=== PATIENT | female | born 1970 | race Caucasian/White ===

== ENCOUNTER 2021-09-18 12:08 | Emergency (ER) | payer BC, SELFPAY ==
[2021-09-18] VITALS (8 sets, daily range): BP systolic 133–187; BP diastolic 75–103; PULSE 74–98; RESP 14–20; TEMP 37; O2SAT 97–98; BMI 30.7
--- NOTE | ~2021-09-18 | CT_ITS ---
EXAMINATION: CT HEAD WITHOUT CONTRAST CLINICAL INFORMATION: Blurry vision, hypertension. COMPARISON: None TECHNIQUE: Contiguous axial imaging was performed from the skull base to vertex without intravenous administration of contrast. This CT examination was performed using dose optimization techniques as appropriate, variously including the following: *Automated exposure control *Adjustment of mA and/or kV according to patient size (this includes techniques or standardized protocols for targeted exams where dose is matched to indication/reason for exam; i.e. extremities or head) *Use of iterative reconstruction technique DLP: 1178 mGy-cm FINDINGS: There is no evidence of acute intracranial hemorrhage or territorial infarction. No abnormal mass effect or midline shift is seen. Simms to white matter differentiation is well preserved. No extra-axial fluid collections are identified. The ventricles are normal in size. There is no abnormal attenuation within the brain parenchyma. The osseous structures and soft tissues are normal. The mastoid air cells and visualized portions of the paranasal sinuses are well aerated. CT/CT head/brain wo con IMPRESSION: No acute intracranial process seen.
--- NOTE | ~2021-09-18 | CT_ITS ---
EXAMINATION: CT ABDOMEN AND PELVIS WITHOUT CONTRAST CLINICAL INFORMATION: Left lower quadrant abdominal pain COMPARISON: None TECHNIQUE: Multidetector volumetric imaging was performed from the superior aspect of the liver through the pubic symphysis. Sagittal and coronal reformatted images were obtained on the technologist's workstation. This CT examination was performed using dose optimization techniques as appropriate, variously including the following: *Automated exposure control *Adjustment of mA and/or kV according to patient size (this includes techniques or standardized protocols for targeted exams where dose is matched to indication/reason for exam; i.e. extremities or head) *Use of iterative reconstruction technique DLP: 1178 mGy-cm FINDINGS: LUNG BASES: The lung bases are clear. There is a calcified 6 mm nodule with adjacent parenchymal LIVER, GALLBLADDER, AND BILIARY TREE: The liver is normal in size, shape, and attenuation. No focal hepatic lesion or biliary ductal dilatation is present. The gallbladder is unremarkable with no evidence of radiopaque gallstones, gallbladder wall thickening, or obvious pericholecystic inflammatory changes. PANCREAS: Unremarkable. SPLEEN: Unremarkable. ADRENAL GLANDS: Unremarkable. KIDNEYS AND URETERS: The kidneys are normal in size, shape, and attenuation. No hydronephrosis, hydroureter, or calculi seen. No perinephric stranding. There is cyst exophytic 2.2 x 1.6 cm cyst midpole cortex left kidney. BLADDER: Unremarkable. GASTROINTESTINAL TRACT: There is scattered stool and gas seen throughout the colon without any significant distention. Small bowel loops are normal caliber. Appendix is not seen. ABDOMINAL WALL: No significant hernia is appreciated. LYMPH NODES: Normal. VASCULAR: Unremarkable. PELVIC VISCERA: The uterus is anteverted and appears unremarkable. No adnexal mass or free fluid seen. No abnormal pelvic or inguinal lymphadenopathy. OSSEOUS STRUCTURES: There are degenerative disc changes with vacuum disc phenomena L5-S1 disc level. CT/CT abdomen pelvis wo con IMPRESSION: No acute intra-abdominal process seen. No etiology found for left lower quadrant pain. Fleischner guidelines were followed.
--- NOTE | ~2021-09-18 | XR_ITS ---
EXAMINATION: XR CHEST CLINICAL INFORMATION: Chest pain COMPARISON: None TECHNIQUE: Frontal view of the chest was obtained. FINDINGS: Lungs are well-inflated. An old calcified granuloma is present in the left lower lobe. Trachea is midline in position. No interstitial disease, consolidation or mass. No pleural effusion or pneumothorax. Cardiac silhouette and pulmonary vessels are normal in size. The mediastinum and myra have normal contour. The visualized bones, and upper abdomen, are unremarkable. XR/XR chest 1V IMPRESSION: No acute cardiopulmonary abnormality.
--- NOTE | 2021-09-18 12:40 | ECG_ITS ---
Test Reason : HIGH BLOOD PRESSURE Blood Pressure : / mmHG Vent. Rate : 081 BPM Atrial Rate : 081 BPM P-R Int : 164 ms QRS Dur : 086 ms QT Int : 420 ms P-R-T Axes : 060 030 007 degrees QTc Int : 487 ms Normal sinus rhythm Prolonged QT Abnormal ECG No previous ECGs available Referred By: Thelma Hodge Electronically Signed By:SHANNA EMERY MD
--- NOTE | 2021-09-18 12:43 | ED_ITS ---
HPI - General Adult General Chief complaint: Recheck/Abnormal Lab/Rx Stated complaint: High blood pressure, Chest pain Time Seen by Provider: 09/18/21 12:31 Source: patient Mode of arrival: ambulatory History of Present Illness HPI narrative: 51-year-old female with past medical history of HTN on chlorothiazide 25 mg, presenting to the ED complaining of chest discomfort, generalized fatigue, intermittent lightheadedness, mild headache, mild blurry vision bilaterally, low back pain, and LLQ abdominal pain x5 days. Admits has been checking her BP at home due to increased anxiety/stressors, and has been elevated also with noted tachycardia. Denies SOB, vomiting, diarrhea, constipation, dysuria/hematuria Onset (ago): day(s) Related Data Previous Rx's Medication Instructions Recorded lisinopril 10 mg tablet 10 mg PO DAILY #30 tabs 09/18/21 Allergies Allergy/AdvReac Type Severity Reaction Status Date / Time No Known Allergies Allergy Verified 09/18/21 12:16 Review of Systems Review of Systems: Constitutional: No Fever, No Chills, + Fatigue, No Malaise ENT/Mouth: No Ear Pain, No Nasal Congestion, No Sinus Pain, No sore throat, No Rhinorrhea, No Swallowing Difficulty Eyes: No Eye Pain, No Swelling, No Redness, No Foreign Body, No Discharge, + Vision Changes Cardiovascular: + Chest Pain, No SOB, No Dyspnea on Exertion, No Orthopnea, No Edema, No Palpitations Respiratory: No Cough, No Sputum, No Wheezing, No Dyspnea Gastrointestinal: + Nausea, No Vomiting, No Diarrhea, No Constipation, + Abdominal pain,= Genitourinary: No irregular bleeding, No Dysuria, No Urinary Frequency, No Hematuria, No Urinary Incontinence/retention, No Flank Pain, No Urinary Flow Changes Musculoskeletal: No joint pain, No Myalgias, No Joint Swelling Skin: No Skin Lesions, No rash Neuro: + Weakness, No Numbness, No Paresthesias, No Loss of Consciousness, + lightheadedness, + Headache Yes all other systems are reviewed and are negative Constitutional: Constitutional: Reports as per [facility] Past Medical History Attestation statement: The following information was validated with the patient. Medical History (Updated 09/18/21 @ 19:57 by BRYON Guadalupe) Hypertension Social History Social History Patient Tobacco Use Status: Never used Tobacco Use of substances other than those prescribed or required for medical reasons: No Advance Directives: No Advance Directives Information Provided: No Physical Exam ED Vital Signs: Vital Signs - 24 hr 09/18/21 12:13 09/18/21 12:45 09/18/21 12:48 Temperature 98.6 F Pulse Rate 98 84 91 Respiratory Rate 16 16 Blood Pressure 185/103 H 187/94 H 180/98 H Pulse Oximetry 97 98 Oxygen Delivery Method Room Air Room Air 09/18/21 12:50 09/18/21 12:52 09/18/21 15:08 Temperature Pulse Rate 81 93 78 Respiratory Rate 20 Blood Pressure 176/91 H 164/92 H 143/86 H Pulse Oximetry Oxygen Delivery Method 09/18/21 17:40 09/18/21 19:27 Temperature Pulse Rate 84 74 Respiratory Rate 20 14 Blood Pressure 139/79 133/75 Pulse Oximetry 98 Oxygen Delivery Method BMI result Body Mass Index 30.7 Const General: cooperative, healthy appearing, no acute distress, alert and awake Orientation/consciousness: patient oriented x3 Limitations: no limitations HENMT Head: Yes normal to inspection and Yes atraumatic Ears: hearing grossly normal bilaterally General nose exam: Normal external nose present Face and sinus: Yes normal facial exam Throat: Yes posterior oropharynx normal, Yes tonsils normal and Yes uvula midline Eyes General: appearance normal, both eyes and all related structures Pupils: Equal, round and reactive pupils present EOM: EOMs intact bilaterally Neck Neck: Yes normal visual inspection and Yes no meningeal signs Resp Effort & Inspection: normal respiratory effort and no respiratory distress Auscultation: clear to auscultation bilaterally, no crackles, no rales, no rhonchi and no wheezes Cardio Rate: regular rate Heart sounds: S1 normal heart sound present and S2 normal heart sound present GI Inspection: Yes normal to inspection Palpation (GI): Soft to palpation, Tenderness to palpation present (GI) in the LLQ; with no rebound tenderness, no guarding and not rigid General: Yes no CVA tenderness Back/Spine/Pelvis Back: no CVA tenderness Skin Rashes: no rashes Wounds: no wounds Neuro General: patient oriented x3, tone normal and no meningeal signs Cranial nerves: Yes Equal, round and reactive pupils present Gait exam (Neuro): Normal gait present Motor exam (neuro): 5/5 motor strength present throughout, Pronator motor function not present and no tremor noted Coordination: [id number] test normal Romberg Test: Negative Extrem General: Yes normal to inspection, Yes no pedal edema and Yes no calf tenderness Course Course Course Narrative: -1342--no leukocytosis. H&H stable. Hypokalemic to 2.8 > 60 mEq p.o. and 10 mEq IV repletion ordered >> EKG does show prolonged QT to 487 > could be 2/2 thiazide. Magnesium WNL. will continue to monitor -troponin negative. UA negative. COVID-19 negative XR chest 1V IMPRESSION: No acute cardiopulmonary abnormality. CT head/brain wo con IMPRESSION: No acute intracranial process seen. CT abdomen pelvis wo con IMPRESSION: No acute intra-abdominal process seen. No etiology found for left lower quadrant pain.? ? Fleischner guidelines were followed -repeat potassium after repletion improved to 4.3. Repeat EKG with continued prolonged QTC now to 500 > no prior EKGs to compare prior to today. Case was discussed with Dr. Gauthier who recommended 2 g of IV magnesium and repeat EKG. -1950--repeat EKG after IV magnesium 493, suspect this could be patients chronic, otherwise well-appearing on exam. Once again discussed with Dr. Gauthier who feels patient is safe for discharge home. Results discussed with patient and , recommended magnesium and potassium supplements at home as well as close PCP/cardiology follow-up. Discontinued patient's hydrochlorothiazide and will initiate lisinopril. They verbalized understanding and feels safe for discharge home at this time Medical Decision Making MDM Narrative Medical decision making narrative: 51-year-old female with past medical history of HTN on chlorothiazide 25 mg, presenting to the ED complaining of chest discomfort, generalized fatigue, intermittent lightheadedness, mild headache, mild blurry vision bilaterally, low back pain, and LLQ abdominal pain x5 days. On exam hypertensive, NAD, nontoxic appearing, no midline spinous tenderness, no focal neuro deficits, abdomen soft with LQ tenderness, no rebound or guarding. Concern for hypertensive urgency/emergency vs ACS vs viral illness vs diverticulitis. Symptoms atypical for PE. Low suspicion for appendicitis, renal stone, CHF, pneumonia Plan: EKG, labs, UA, head CT, CT abdomen/pelvis, IVF, orthostatics, re-evaluate Medical Records Medical records reviewed: Yes I reviewed the patient's medical records. Lab Data Lab results reviewed: Yes I reviewed the patient's lab results. Result diagrams: 09/18/21 13:07 09/18/21 15:41 Labs: Lab Results 09/18/21 09/18/21 09/18/21 Range/Units 13:02 13:07 13:07 WBC 7.3 (4.8-10.8) X10*3/uL RBC 4.70 (4.20-5.50) X10*6/uL Hgb 14.4 (12.0-16.0) g/dl Hct 41.5 (37.0-47.0) % MCV 88.3 (80.0-98.0) fL MCH 30.6 (27.0-33.0) pg MCHC 34.7 (31.0-35.0) g/dl RDW 12.1 (11.0-16.0) % Plt Count 307 (160-400) X10*3/uL MPV 10.5 (9.4-12.3) fL Immature Gran % (Auto) 0.1 (0.0-0.4) % Neut % (Auto) 57.4 (45-73) % Lymph % (Auto) 23.1 (20-40) % [place] % (Auto) 8.8 (2-11) % Eos % (Auto) 10.3 H (0-4) % Baso % (Auto) 0.3 (0-2) % Lymph # (Auto) 1.7 (1.2-4.9) X10*3/uL [place] # (Auto) 0.6 (0.1-1.2) X10*3/uL Eos # (Auto) 0.8 H (0.0-0.4) X10*3/uL Baso # (Auto) 0.0 (0.0-0.2) X10*3/uL Abs Immat Gran (auto) 0.01 (0.00-0.03) X10*3/uL Absolute Neuts (auto) 4.2 (2.0-8.3) x10*3/uL Absolute Nucleated RBC 0.000 (0.0-0.012) X10*3/uL Nucleated RBC % (auto) 0.0 (0.0-0.2) /100WBC Sodium 139 (135-145) mmol/L Potassium 2.8 L (3.3-5.1) mmol/L Chloride 95 L (96-108) mmol/L Carbon Dioxide 29 (22-29) mmol/L Anion Gap 18 (12-20) BUN 13 (9-16) mg/dL Creatinine 0.75 (0.5-1.4) mg/dL Estim Creat Clear Calc 75.7 Estimated GFR > 60 Random Glucose 90 (60-115) mg/dL Calcium 10.4 H (8.4-10.2) mg/dL Magnesium 1.8 (1.6-2.6) mg/dL Total Bilirubin 0.6 (0.0-1.0) mg/dL Direct Bilirubin 0.2 (0.0-0.5) mg/dL AST 16 (5-31) U/L ALT 20 (0-31) U/L Alkaline Phosphatase 28 L (39-117) U/L Troponin I High Sens (<3.5-17.0) ng/L Total Protein 8.4 H (6.5-8.0) g/dL Albumin 5.0 (3.5-5.0) g/dL Lipase 16 (8-78) U/L Urine Color Urine Appearance Urine pH (5.0-8.0) Ur Specific [place] (1.005-1.025) Urine Protein (NEG-TRACE) MG/DL Urine Glucose (UA) (NEG) MG/DL Urine Ketones (NEG) MG/DL Urine Blood (NEG) Urine Nitrite (NEG) Ur Leukocyte Esterase (NEG) COVID-19 (ISABELLE) Negative (Negative) COVID-19 Clin Com See Note 09/18/21 09/18/21 09/18/21 Range/Units 13:07 13:11 15:41 WBC (4.8-10.8) X10*3/uL RBC (4.20-5.50) X10*6/uL Hgb (12.0-16.0) g/dl Hct (37.0-47.0) % MCV (80.0-98.0) fL MCH (27.0-33.0) pg MCHC (31.0-35.0) g/dl RDW (11.0-16.0) % Plt Count (160-400) X10*3/uL MPV (9.4-12.3) fL Immature Gran % (Auto) (0.0-0.4) % Neut % (Auto) (45-73) % Lymph % (Auto) (20-40) % [place] % (Auto) (2-11) % Eos % (Auto) (0-4) % Baso % (Auto) (0-2) % Lymph # (Auto) (1.2-4.9) X10*3/uL [place] # (Auto) (0.1-1.2) X10*3/uL Eos # (Auto) (0.0-0.4) X10*3/uL Baso # (Auto) (0.0-0.2) X10*3/uL Abs Immat Gran (auto) (0.00-0.03) X10*3/uL Absolute Neuts (auto) (2.0-8.3) x10*3/uL Absolute Nucleated RBC (0.0-0.012) X10*3/uL Nucleated RBC % (auto) (0.0-0.2) /100WBC Sodium 139 (135-145) mmol/L Potassium 4.3 D (3.3-5.1) mmol/L Chloride 102 (96-108) mmol/L Carbon Dioxide 25 (22-29) mmol/L Anion Gap 16 (12-20) BUN 10 (9-16) mg/dL Creatinine 0.62 (0.5-1.4) mg/dL Estim Creat Clear Calc 91.6 Estimated GFR > 60 Random Glucose 78 (60-115) mg/dL Calcium 9.2 D (8.4-10.2) mg/dL Magnesium (1.6-2.6) mg/dL Total Bilirubin (0.0-1.0) mg/dL Direct Bilirubin (0.0-0.5) mg/dL AST (5-31) U/L ALT (0-31) U/L Alkaline Phosphatase (39-117) U/L Troponin I High Sens < 3.5 (<3.5-17.0) ng/L Total Protein (6.5-8.0) g/dL Albumin (3.5-5.0) g/dL Lipase (8-78) U/L Urine Color STRAW Urine Appearance HAZY Urine pH 6.0 (5.0-8.0) Ur Specific [place] <= 1.005 (1.005-1.025) Urine Protein NEG (NEG-TRACE) MG/DL Urine Glucose (UA) NEG (NEG) MG/DL Urine Ketones NEG (NEG) MG/DL Urine Blood NEG (NEG) Urine Nitrite NEG (NEG) Ur Leukocyte Esterase NEG (NEG) COVID-19 (ISABELLE) (Negative) COVID-19 Clin Com ECG Data Attestation: I personally reviewed and interpreted this ECG as follows: Interpretation: EKG is normal sinus rhythm at a rate of 81. IN interval 164. QTC 487, prolonged QT. No STEMI Discharge Plan Discharge Clinical Impression: Acute hypokalemia, Hypertension Patient Disposition: Home, Self-Care Instructions: Hypokalemia (ED), Chronic Hypertension (ED) Additional Instructions: Your potassium was very low today in the emergency department, we repleted it, however he did have EKG changes with a prolonged QT, this can be dangerous and related to your electrolyte abnormalities, this could also be related to your antihypertensive medication. We also repleted your magnesium. It is important for you to have close follow-up with her primary care doctor as well as Cardiology Stop taking your chlorothiazide and start taking lisinopril 10 mg daily. If her symptoms persist, worsen, become more constant, chest pain, shortness of breath, lightheadedness return to the ED immediately Prescriptions: New lisinopril 10 mg tablet 10 mg PO DAILY Qty: 30 0RF Referrals: Marli Hunter NP [Primary Care Provider] - 1 day Denis Felix MD [Physician] - 3 days
[2021-09-18 13:10] LABS: MANUAL DIFF FLAG NO
[2021-09-18] MEDS: 0.9 % Sodium Chloride 1,000 ML 999 ML IV (13:13)
[2021-09-18] MEDS: ondansetron HCL 4 MG/2 ML VIAL IVPUSH (13:13)
[2021-09-18 13:15] LABS: Basophils Percent Auto 0.3 % (0-2); Eosinophils Absolute Auto 0.8 X10*3/uL (0.0-0.4); Eosinophils Percent Auto 10.3 % (0-4); Hematocrit 41.5 % (37.0-47.0); Hemoglobin 14.4 g/dl (12.0-16.0); Imm Gran Abs Auto 0.01 X10*3/uL (0.00-0.03); Imm Gran Pct Auto 0.1 % (0.0-0.4); Lymphocytes Absolute Auto 1.7 X10*3/uL (1.2-4.9); Lymphocytes Percent Auto 23.1 % (20-40); Mean Corpuscular HGB Conc 34.7 g/dl (31.0-35.0); Mean Corpuscular Hemoglobin 30.6 pg (27.0-33.0); Mean Corpuscular Volume 88.3 fL (80.0-98.0); Mean Platelet Volume 10.5 fL (9.4-12.3); Monocytes Absolute Auto 0.6 X10*3/uL (0.1-1.2); Monocytes Percent Auto 8.8 % (2-11); Neutrophils Absolute Auto 4.2 x10*3/uL (2.0-8.3); Neutrophils Percent Auto 57.4 % (45-73); Platelet Count 307 X10*3/uL (160-400); Red Cell Distribution Width 12.1 % (11.0-16.0); White Blood Count 7.3 X10*3/uL (4.8-10.8)
[2021-09-18 13:19] LABS: Appearance Urine HAZY; Color Urine STRAW; Glucose Urine UA NEG (NEG); Leukocyte Esterase Urine NEG (NEG); Nitrite Urine NEG (NEG); Specific Gravity - Urine <= 1.005 (1.005-1.025); Urine Blood NEG (NEG); Urine Ketones NEG (NEG); Urine Protein NEG (NEG-TRACE)
[2021-09-18 13:29] LABS: COVID-19 Test Negative (Negative); IDNOW Serial# 16C4AD1C
[2021-09-18 13:31] LABS: Alanine Aminotransferase 20 U/L (0-31); Alkaline Phosphatase 28 U/L (39-117); Anion Gap 18 (12-20); Aspartate Amino Transferase 16 U/L (5-31); Bilirubin Direct 0.2 mg/dL (0.0-0.5); Bilirubin Total 0.6 mg/dL (0.0-1.0); Blood Urea Nitrogen 13 mg/dL (9-16); Calcium 10.4 mg/dL (8.4-10.2); Carbon Dioxide 29 mmol/L (22-29); Chloride 95 mmol/L (96-108); Creatinine Clr Calc Pharmacy 75.7; Estimated Glomerular Filt Rate > 60; Glucose Random 90 mg/dL (60-115); Lipase 16 U/L (8-78); Magnesium 1.8 mg/dL (1.6-2.6); Potassium 2.8 mmol/L (3.3-5.1); Sodium 139 mmol/L (135-145); Total Protein 8.4 g/dL (6.5-8.0)
[2021-09-18 13:34] LABS: Troponin-I High Sensitivity < 3.5 ng/L (<3.5-17.0)
[2021-09-18] MEDS: Potassium Chloride Packet 20 MEQ PACKET 60 MEQ PO (14:02)
[2021-09-18] MEDS: Potassium Chloride/H20 10 MEQ/100 ML PIGGYBACK 100 MEQ IV (14:03)
[2021-09-18 16:03] LABS: Blood Urea Nitrogen 10 mg/dL (9-16); Creatinine Clr Calc Pharmacy 91.6; Estimated Glomerular Filt Rate > 60; Glucose Random 78 mg/dL (60-115)
[2021-09-18 16:13] LABS: Anion Gap 16 (12-20); Calcium 9.2 mg/dL (8.4-10.2); Carbon Dioxide 25 mmol/L (22-29); Chloride 102 mmol/L (96-108); Potassium 4.3 mmol/L (3.3-5.1); Sodium 139 mmol/L (135-145)
--- NOTE | 2021-09-18 16:34 | ECG_ITS ---
Test Reason : low potassium Blood Pressure : / mmHG Vent. Rate : 080 BPM Atrial Rate : 080 BPM P-R Int : 162 ms QRS Dur : 076 ms QT Int : 434 ms P-R-T Axes : 057 029 032 degrees QTc Int : 500 ms Normal sinus rhythm Prolonged QT Abnormal ECG When compared with ECG of 18-SEP-2021 12:50, Nonspecific T wave abnormality no longer evident in Anterior leads Referred By: Thelma Hodge Electronically Signed By:SHANNA EMERY MD
[2021-09-18] MEDS: Magnesium Sulfate/H2O 2 GM/50 ML PIGGYBACK IV (17:36)
--- NOTE | 2021-09-18 18:19 | ECG_ITS ---
Test Reason : cp Blood Pressure : / mmHG Vent. Rate : 075 BPM Atrial Rate : 075 BPM P-R Int : 174 ms QRS Dur : 078 ms QT Int : 442 ms P-R-T Axes : 065 048 028 degrees QTc Int : 493 ms Normal sinus rhythm Prolonged QT Abnormal ECG When compared with ECG of 18-SEP-2021 16:48, No significant change was found Referred By: Thelma Hodge Electronically Signed By:SHANNA EMERY MD
== END 2021-09-18 20:07 | disposition home or self-care (01) ==
PROVIDERS: Physician Assistant; Emergency Provider Emergency Medicine; PCP Nurse Practitioner Adult Health
DX: E87.6 Hypokalemia (principal); I10 Essential (primary) hypertension; R10.32 Left lower quadrant pain; Z20.822 Contact with and (suspected) exposure to COVID-19; Z79.899 Other long term (current) drug therapy
CPT/HCPCS: 36415; 70450; 71045; 74176; 80048; 80076; 81003; 83690; 83735; 84484; 85025; 87635; 93005; 96361; 96365; 96366; 96367; 96375; 99285; J2405; J3475

== ENCOUNTER 2021-09-30 13:00 | Emergency (ER) | payer BC, SELFPAY ==
--- NOTE | 2021-09-30 13:12 | ED_ITS ---
HPI - Allergic Reaction General Chief complaint: Allergic Reaction Stated complaint: Allergic reaction Time Seen by Provider: 09/30/21 13:12 Source: patient Mode of arrival: EMS Limitations: no limitations History of Present Illness HPI narrative: trying new regularity drink no prior allergic reactions, had some hives yesterday after using it but it was delayed took benadryl. today after taking it had swelling, hives difficulty breathing/swallowing - EMS called treatments given via EMS - epi/benadryl complaint: allergic reaction, hives, facial swelling and other (oral sw elling) Onset (ago): minute(s) (just prior to arrival ) Exposure: other (?cleansing drink) Symptoms: facial swelling, lip swelling, difficulty swallowing, difficulty breathing and tongue swelling Severity: severe Treatment prior to arrival: benadryl (50mg ) and epinephrine (IM epi) Previous Allergic Reaction History: none Related Data Previous Rx's Medication Instructions Recorded lisinopril 10 mg tablet 10 mg PO DAILY #30 tabs 09/18/21 epinephrine 0.3 mg/0.3 mL 0.3 mg (0.3 mL) IM Q10M PRN 09/30/21 injection, auto-injector anaphylaxis #2 ea prednisone 20 mg tablet 40 mg PO DAILY 4 days #8 tabs 09/30/21 Allergies Allergy/AdvReac Type Severity Reaction Status Date / Time No Known Allergies Allergy Verified 09/18/21 12:16 Review of Systems Review of Systems: Constitutional : No Fever, No Chills ENT/Mouth : positive oral swelling, No Hoarseness, posSwallowing Difficulty Eyes: No Eye Pain, pos Swelling, No Redness Cardiovascular : No Chest Pain, No SOB Respiratory : No Cough, No Sputum, No Wheezing, No Smoke Exposure, No Dyspnea Gastrointestinal : No Nausea, No Vomiting, No Diarrhea, No abdominal Pain Genitourinary : No Dysuria, No Urinary Frequency, No Hematuria Musculoskeletal : No joint pain, No Myalgias, No Joint Swelling Skin : No Skin Lesions, positive rash Neuro : No Weakness, No Numbness, No Headache Psych : No Anxiety/Panic, No Depression Heme/Lymph: No Bruising, No Lymphadenopathy Endocrine : No Polyuria, No Polydipsia All other systems reviewed and are negative [facility] Past Medical History Attestation statement: The following information was validated with the patient. Medical History Hypertension Social History Social History Patient Tobacco Use Status: Never used Tobacco Use of substances other than those prescribed or required for medical reasons: No Advance Directives: Yes Advance Directives Information Provided: Yes Advance Directives on File: No Patient : No Physical Exam ED Vital Signs: Vital Signs - 24 hr 09/30/21 13:39 09/30/21 14:27 Temperature 97 F 97.7 F Pulse Rate 94 90 Respiratory Rate 18 17 Blood Pressure 167/86 H 141/91 H Pulse Oximetry 100 98 Oxygen Delivery Method Room Air Room Air BMI result Body Mass Index 30.7 Appearance: Alert. Oriented X3. No acute distress. Eyes: Pupils equal, round and reactive to light. ENT: tongue post pharynx normal, mild upper and lower lip swelling Neck: Normal inspection. Neck supple. CVS: Normal heart rate and rhythm. Pulses normal. Respiratory: No respiratory distress. Breath sounds normal. no stridor Abdomen: Soft and non-tender. Skin: Skin warm and dry. Normal skin color. Normal skin turgor. Extremities: No lower extremity edema. No calf ttp diffuse hives upper arms Neuro: Oriented X 3. No motor deficit. No sensory deficit. Course Course Course Narrative: signed out to Katharine SLATER MDM - Allergic Reaction MDM Narrative Medical decision making narrative: 51 yo female with HTN trying new regularity medication with mild reaction yesterday now with full blown angioedema - given epi and benadryl by EMS with significant improvement. will add on steroids/pepcid, IVF and observe x 2hours. Patient aware she is no longer to take this medication. Dispo per clinical improvement and observation Discharge Plan Discharge Clinical Impression: Allergic angioedema Qualifiers: Encounter type: initial encounter Qualified Code(s): T78.3XXA - Angioneurotic edema, initial encounter Patient Disposition: Still a Patient Instructions: Anaphylaxis (ED), Angioedema (ED) Additional Instructions: return to ED for any worsening symptoms or concerns do not take that powder again avoid psyllium start prednisone on 10/01 Prescriptions: New prednisone 20 mg tablet 40 mg PO DAILY 4 Days Qty: 8 0RF epinephrine 0.3 mg/0.3 mL auto-injector 0.3 mg IM Q10M PRN (Reason: anaphylaxis) Qty: 2 0RF Rx Instructions: for 2 doses No Action lisinopril 10 mg tablet 10 mg PO DAILY Qty: 30 0RF Stand Alone Forms: Work/School Release
[2021-09-30 13:39] VITALS: BP 103/60; BP 167/86; PULSE 100; PULSE 94; RESP 18; TEMP 36.1; O2SAT 100; O2SAT 99; BMI 30.7
[2021-09-30 14:27] VITALS: BP 141/91; PULSE 90; RESP 17; TEMP 36.5; O2SAT 98
[2021-09-30] MEDS: methylPREDNISolone Sod Succ 125 MG/2 ML VIAL IVPUSH (14:33)
[2021-09-30] MEDS: Famotidine/PF 20 MG/2 ML VIAL IVPUSH (14:33)
[2021-09-30] MEDS: 0.9 % Sodium Chloride 1,000 ML 999 ML IV (14:34)
--- NOTE | 2021-09-30 14:41 | PC.NURSE ---
patient a/ox4 . pearrla . lungs clear .o2 sat 96 on room air , respirations are equal and unlabored . heart rate regular at 94 beats .upper chest redness and hives noted . 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 skin , pink warm and dry . upper chest hives /redness noted bilaterally above both eyes , bilaterally behind ears , behind neck . left inner arm hives and redness noted . upper inner thighs hives and redness noted .abdomen soft non tender . positive bowel sounds in all four quadrants . medication started as ordered . patient aware of plan of care .
[2021-09-30 15:36] VITALS: BP 125/76; PULSE 86; RESP 16; TEMP 36.1; O2SAT 99
--- NOTE | 2021-09-30 15:48 | PC.NURSE ---
patient redness and hives improving . educated patient on use of epinephrine and signs and symptoms to monitor for reactions . patient discharged home .
== END 2021-09-30 15:50 | disposition home or self-care (01) ==
PROVIDERS: Emergency Provider Emergency Medicine; PCP Nurse Practitioner Adult Health
DX: L50.0 Allergic urticaria (principal); Z79.899 Other long term (current) drug therapy
CPT/HCPCS: 96361; 96374; 96375; 99284; J2930

== ENCOUNTER → 2021-10-22 10:17 | Outpatient (BNVA) | payer BC, SELFPAY | PROVIDERS: PCP Nurse Practitioner Adult Health; Visit Provider Internal Medicine Cardiovascular Disease | DX: R00.2 Palpitations (principal); I10 Essential (primary) hypertension | CPT/HCPCS: 93005 ==